=== PATIENT | female | born 1970 | race Asian ===

== ENCOUNTER 2022-09-18 11:05 | Emergency (ER) | payer OTHER ==
[2022-09-18 11:31] LABS: Urine Blood 3+ (Negative); Urine Glucose Negative (Negative); Urine Protein 2+ (Negative); Urine Specific Gravity <=1.005 (1.005-1.030)
--- NOTE | 2022-09-18 11:40 | EDPHYS ---
Physician Documentation [facility] Name: Kaveh Stone Age: 51 yrs Sex: Female : 1970 Arrival Date: 09/18/2022 Time: 11:08 Bed IW1 Private MD: ED Physician Royce Fine HPI: 09/18 11:42 This 51 yrs old Female presents to ER via Ambulatory with complaints of Pain With snw Urination, blood in urine. 11:42 Onset: The symptoms/episode began/occurred acutely. Associated signs and symptoms: snw Pertinent positives: dysuria, Pertinent negatives: fever, vomiting. The patient has experienced a previous episode, many years ago. The patient has not recently seen a physician. 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 - Social history:: Smoking status: Patient denies any tobacco usage or history of. ROS: 11:42 Constitutional: Negative for fever, chills, and weight loss, Eyes: Negative for injury, snw pain, redness, and discharge, ENT: Negative for injury, pain, and discharge, Neck: Negative for injury, pain, and swelling, Cardiovascular: Negative for chest pain, palpitations, and edema, Respiratory: Negative for shortness of breath, cough, wheezing, and pleuritic chest pain, Abdomen/GI: Negative for abdominal pain, nausea, vomiting, diarrhea, and constipation, Back: Negative for injury and pain, MS/Extremity: Negative for injury and deformity, Skin: Negative for injury, rash, and discoloration, Neuro: Negative for headache, weakness, numbness, tingling, and seizure, Psych: Negative for depression, anxiety, suicide ideation, homicidal ideation, and hallucinations. 11:42 : Positive for urinary symptoms, small amounts, hematuria, burning with urination. Exam: 11:41 Constitutional: This is a well developed, well nourished patient who is awake, alert, snw and in no acute distress. Head/Face: Normocephalic, atraumatic. Eyes: Pupils equal round and reactive to light, extra-ocular motions intact. Lids and lashes normal. Conjunctiva and sclera are non-icteric and not injected. Cornea within normal limits. Periorbital areas with no swelling, redness, or edema. ENT: Nares patent. No nasal discharge, no septal abnormalities noted. Tympanic membranes are normal and external auditory canals are clear. Oropharynx with no redness, swelling, or masses, exudates, or evidence of obstruction, uvula midline. Mucous membranes moist. Neck: Trachea midline, no thyromegaly or masses palpated, and no cervical lymphadenopathy. Supple, full range of motion without nuchal rigidity, or vertebral point tenderness. No Meningismus. Chest/axilla: Normal chest wall appearance and motion. Nontender with no deformity. No lesions are appreciated. Cardiovascular: Regular rate and rhythm with a normal S1 and S2. No gallops, murmurs, or rubs. Normal PMI, no JVD. No pulse deficits. Respiratory: Lungs have equal breath sounds bilaterally, clear to auscultation and percussion. No rales, rhonchi or wheezes noted. No increased work of breathing, no retractions or nasal flaring. Abdomen/GI: Soft, non-tender, with normal bowel sounds. No distension or tympany. No guarding or rebound. No evidence of tenderness throughout. Back: No spinal tenderness. No costovertebral tenderness. Full range of motion. Skin: Warm, dry with normal turgor. Normal color with no rashes, no lesions, and no evidence of cellulitis. MS/ Extremity: Pulses equal, no cyanosis. Neurovascular intact. Full, normal range of motion. Neuro: Awake and alert, GCS 15, oriented to person, place, time, and situation. Cranial nerves II-XII grossly intact. Motor strength 5/5 in all extremities. Sensory grossly intact. Cerebellar exam normal. Normal gait. Psych: Awake, alert, with orientation to person, place and time. Behavior, mood, and affect are within normal limits. Vital Signs: 11:22 BP 148 / 75; Pulse 80; Resp 16; Temp 98.6(TE); Pulse Ox 99% on R/A; Weight 43.54 kg; ss Height 4 ft. 9 in. (147 cm); Pain 5/10; 11:22 Body Mass Index 20.15 (43.54 kg, 147 cm) ss MDM: 11:37 Patient medically screened. snw 11:41 Differential diagnosis: bacterial infection, UTI. Differential diagnosis: kidney stone. snw Data reviewed: vital signs, nurses notes. Counseling: I had a detailed discussion with the patient and/or guardian regarding: the historical points, exam findings, and any diagnostic results supporting the discharge/admit diagnosis, the presence of at least one elevated blood pressure reading (>120/80) during this emergency department visit, lab results, the need for outpatient follow up, for definitive care, to return to the emergency department if symptoms worsen or persist or if there are any questions or concerns that arise at home. Special discussion: I have referred the patient to see his PCP for further evaluation of high blood pressure. Based on the history and exam findings, there is no indication for further emergent testing or inpatient evaluation. I discussed with the patient/guardian the need to see the primary care provider for further evaluation of the symptoms. 09/18 11:31 Order name: Urine Dipstick-Ancillary; Complete Time: 11:36 [facility] 09/18 11:32 Order name: Urine Culture [id number] Administered Medications: 11:47 Drug: Augmentin (Amoxicillin-Clavulanate) 875 mg Route: PO; Disposition Summary: 09/18/22 11:40 Discharge Ordered Location: Home snw Condition: Stable snw Diagnosis - UTI/ Urinary tract infection, site not specified snw Followup: snw - With: Emergency Department - When: As needed - Reason: Worsening of condition Followup: snw - With: Private Physician - When: 2 - 3 days - Reason: Recheck today's complaints, Continuance of care, Re-evaluation by your physician Discharge Instructions: - Discharge Summary Sheet snw - Urinary Tract Infection, Adult snw - Rehydration, Adult snw - Form - Blood Pressure Record Sheet snw - How to Take Your Blood Pressure snw Forms: - Medication Reconciliation Form snw - Thank You Letter snw - Antibiotic Education snw - Prescription Opioid Use snw Prescriptions: - Augmentin 875-125 mg Oral Tablet - take 1 tablet by ORAL route every 12 hours for 10 days; 20 tablet; Refills: 0, snw Product Selection Permitted Signatures: Dispatcher [employer] EDPA Jacey Tarango FNP-C FNP-Sue Callahan, RN RN ss
--- NOTE | 2022-09-18 11:40 | ER ---
Nurse's Notes [facility] Name: Kaveh Stone Age: 51 yrs Sex: Female : 1970 Arrival Date: 09/18/2022 Time: 11:08 Bed IW1 Private MD: Diagnosis: UTI/ Urinary tract infection, site not specified Presentation: 09/18 11:22 Chief complaint: Patient states: burning with urination that began at 0600. Coronavirus ss screen: Client denies travel out of the [place] in the last 14 days. Ebola Screen: Patient denies exposure to infectious person. Patient denies travel to an Ebola-affected area in the 21 days before illness onset. Initial Sepsis Screen: Does the patient meet any 2 criteria? No. Patient's initial sepsis screen is negative. Does the patient have a suspected source of infection? No. Patient's initial sepsis screen is negative. Risk Assessment: Do you want to hurt yourself or someone else? Patient reports no desire to harm self or others. Onset of symptoms was September 18, 2022. 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 - Social history:: Smoking status: Patient denies any tobacco usage or history of. Vital Signs: 11:22 BP 148 / 75; Pulse 80; Resp 16; Temp 98.6(TE); Pulse Ox 99% on R/A; Weight 43.54 kg; ss Height 4 ft. 9 in. (147 cm); Pain 5/10; 11:22 Body Mass Index 20.15 (43.54 kg, 147 cm) ED Course: 11:08 Patient arrived in ED. am2 11:13 Jacey Tarango FNP-C is [facility]. snw 11:13 Royce Fine MD is Attending Physician. snw 11:24 Triage completed. ss 11:24 Arm band placed on right wrist. ss 11:47 Urine Culture Sent. ss 12:09 No provider procedures requiring assistance completed. Patient did not have IV access ss during this emergency room visit. Administered Medications: 11:47 Drug: Augmentin (Amoxicillin-Clavulanate) 875 mg Route: PO; Outcome: 11:40 Discharge ordered by . snw 12:09 Discharged to home ambulatory, with family. ss 12:09 Condition: good 12:09 Discharge instructions given to patient, Instructed on discharge instructions, follow up and referral plans. Demonstrated understanding of instructions, follow-up care, Prescriptions given X 1. 12:09 Patient left the ED. ss Addendum: 09/20/2022 08:51 Addendum: Culture Results: Positive urine culture. No further action required. Bacteria i w sensitive to prescribed antibiotic. Signatures: Jacey Tarango, IT SOLUTIONS ARCHITECT-C IT SOLUTIONS ARCHITECT-Csnw Nicci Kent, RN KEIRA Sue Gracia RN RN ss Moreno, Amanda am2
[2022-09-18] MEDS ORDERED: AMOX/K CLAV 875 MG TAB ONE (11:51)
[2022-09-18 12:20] VITALS: BP 148/75; TEMP 98.6; O2SAT 99
== END 2022-09-18 12:09 | disposition home or self-care (01) ==
LOC: ER 11:05
DX: N39.0 Urinary tract infection, site not specified (principal)
CPT/HCPCS: 81003; 87077; 87086; 87088; 87186; 99283